=== PATIENT | male | born 1995 | race Hispanic/Latino ===

== ENCOUNTER 2017-12-22 21:10 | Emergency (ER) | payer OTHER ==
[2017-12-22] MEDS ORDERED: Ibuprofen 800 MG TAB ONE (22:04)
--- NOTE | 2017-12-22 22:13 | RAD ---
TWO VIEWS OF THE CHEST 12/22/17 COMPARISON: None. HISTORY: Left sided rib pain, cough. FINDINGS: There is mild increased density in the medial left upper lobe on frontal imaging superior to the aort ic knob shadow. This could be artifactual or represent mild infiltrate. There is no pneumothorax, ple ural fluid, lobar consolidation, or alveolar edema. IMPRESSION: Mild increased density seen in the medial left apex. The significance is uncertain. This may represen t mild infiltrate. Recommend followup two view examination of the chest in 3-4 weeks. If an abnormali ty persists, a followup chest CT would then be advised. Code T POS: [id number]
== END 2017-12-22 22:44 | disposition home or self-care (01) ==
LOC: ERS 21:10
DX: J18.9 Pneumonia, unspecified organism (principal); S29.011A Strain of muscle and tendon of front wall of thorax, initial encounter; X58.XXXA Exposure to other specified factors, initial encounter
CPT/HCPCS: 71046

== ENCOUNTER 2018-01-18 11:50 | Outpatient (CLI) | payer OTHER ==
--- NOTE | 2018-01-18 14:03 | RAD ---
PA AND LATERAL VIEWS OF THE CHEST: History: Cough. FINDINGS: Comparison made with exam of 12-22-17. The heart size is normal. The lungs are expanded without focal areas of consolidation, pneumothoraces or pleural effusions. No acute osseous abnormalities are seen. IMPRESSION: No radiographic evidence of acute cardiopulmonary process. POS: [id number]
== END 2018-01-18 11:51 | disposition home or self-care (01) ==
LOC: BICRAD 11:50
PROVIDERS: ATTEND Family Medicine
DX: R05 Cough (principal)
CPT/HCPCS: 71046